=== PATIENT | female | born 1955 | race Caucasian/White ===

== ENCOUNTER → 2016-11-15 | Outpatient (CLI) | payer BC | LOC: EMI 09:36 | DX: R42 Dizziness and giddiness (principal); R51 Headache; R90.89 Other abnormal findings on diagnostic imaging of central nervous system; G31.9 Degenerative disease of nervous system, unspecified | CPT/HCPCS: 70553; A9577; J7050 ==

== ENCOUNTER → 2020-07-09 | Day surgery (SDC) | payer BC ==
[~2020-07-09] VITALS: Ht 167.6 cm; Wt 78.0 kg
[~2020-07-09] MED LIST: AMARYL2 MG PO; AMLODIPINE BESYL5 MG PO; ASPIRIN81 MG PO; BENADRYL25 MG PO; CRESTOR10 MG PO; CRESTOR20 MG PO; EFFIENT10 MG PO; ESCITALOPRAM OXA5 MG PO; ESOMEPRAZOLE MA40 MG PO; FERROUS GLUCON324 M2 PO; FEXOFENADINE H180 MG PO; FLONASE 0.05% N16 GM; FOLIC ACID 1 MG1 MG PO; IMDUR ER TAB 6060 MG PO; ISOSORBIDE MONO60 MG PO; LEVOCETIRIZINE D5 MG PO; LEVOTHYROXINE50 MCG PO; LISINOPRIL5 MG PO; MELATONIN10 M2 PO; MELATONIN3 MG PO; METFORMIN HCL1000 MG PO; METFORMIN HCL500 MG PO; METOCLOPRAMIDE H5 MG PO; METOPROLOL TART25 MG PO; MONTELUKAST SOD10 MG PO; MUCINEX600 MG PO; OMNICEF 300 MG300 MG PO; PROTONIX 40 MG40 M1 PO; STOOL SOFTENER1 EACH PO; TRAZODONE HCL50 MG PO; TRESIBA FL100 UNIT/1 INJ; VITAMIN D; ZINC50 M2 PO
== END | disposition home or self-care (01) ==
LOC: OR 06:32
PROVIDERS: Surgery
PROC: 0DB78ZX Excision of Stomach, Pylorus, Via Natural or Artificial Opening Endoscopic, Diagnostic (ICD-10-PCS; principal; 2020-07-09 08:15)
DX: K29.70 Gastritis, unspecified, without bleeding (principal); K31.89 Other diseases of stomach and duodenum; J45.909 Unspecified asthma, uncomplicated; I25.10 Atherosclerotic heart disease of native coronary artery without angina pectoris; M54.12 Radiculopathy, cervical region; E11.9 Type 2 diabetes mellitus without complications; K21.9 Gastro-esophageal reflux disease without esophagitis; E78.5 Hyperlipidemia, unspecified; I10 Essential (primary) hypertension; E03.9 Hypothyroidism, unspecified; G47.33 Obstructive sleep apnea (adult) (pediatric); M19.90 Unspecified osteoarthritis, unspecified site; F32.9 Major depressive disorder, single episode, unspecified; F41.9 Anxiety disorder, unspecified; Z88.5 Allergy status to narcotic agent; Z88.2 Allergy status to sulfonamides; Z79.899 Other long term (current) drug therapy; Z87.891 Personal history of nicotine dependence; Z86.16 Personal history of COVID-19
CPT/HCPCS: 82962; J2704; J7030

== ENCOUNTER 2020-08-19 10:53 | Emergency (ER) | payer BC ==
[~2020-08-19 10:53] MED LIST changes: -ISOSORBIDE MONO60 MG PO
[2020-08-19 11:46] LABS: HEMOGLOBIN 11.1 gm/dl (12.3-15.3); RED BLOOD COUNT 4.47 M/UL (4.00-5.10); WHITE BLOOD COUNT 7.8 K/UL (4.5-11.0)
[2020-08-19 12:22] LABS: BUN/CREATININE RATIO 17 (0-10)
== END 2020-08-19 13:44 | disposition home or self-care (01) ==
LOC: ER1 10:53
PROVIDERS: Internal Medicine
DX: R07.2 Precordial pain (principal); I25.10 Atherosclerotic heart disease of native coronary artery without angina pectoris; I51.9 Heart disease, unspecified; E11.9 Type 2 diabetes mellitus without complications; Z95.5 Presence of coronary angioplasty implant and graft; Z88.2 Allergy status to sulfonamides; Z88.8 Allergy status to other drugs, medicaments and biological substances
CPT/HCPCS: 36415; 71046; 80053; 82550; 82553; 84484; 85025; 93005; 99285

== ENCOUNTER → 2020-09-13 | Outpatient (CLI) | payer BC ==
[~2020-09-13] MED LIST changes: +ISOSORBIDE MONO60 MG PO
== END ==
LOC: HEART 5 09:23
DX: R07.9 Chest pain, unspecified (principal); R06.02 Shortness of breath; I08.1 Rheumatic disorders of both mitral and tricuspid valves; R93.1 Abnormal findings on diagnostic imaging of heart and coronary circulation
CPT/HCPCS: 93306

== ENCOUNTER 2020-09-18 11:09 | Emergency (ER) | payer BC ==
[~2020-09-18 11:09] MED LIST changes: -ISOSORBIDE MONO60 MG PO
[2020-09-18 12:04] LABS: HEMOGLOBIN 11.5 gm/dl (12.3-15.3); RED BLOOD COUNT 4.5 M/UL (4.00-5.10); WHITE BLOOD COUNT 8.3 K/UL (4.5-11.0)
[2020-09-18 12:43] LABS: BUN/CREATININE RATIO 16 (0-10)
[2020-09-18] MEDS ORDERED: ISOSORBIDE MONO60 MG PO (15:46)
== END 2020-09-18 16:05 | disposition home or self-care (01) ==
LOC: ER1 11:09
PROVIDERS: Student in an Organized Health Care Education/Training Program
DX: R07.89 Other chest pain (principal); I10 Essential (primary) hypertension; E11.9 Type 2 diabetes mellitus without complications; E03.9 Hypothyroidism, unspecified; Z20.822 Contact with and (suspected) exposure to COVID-19; Z88.2 Allergy status to sulfonamides; Z88.8 Allergy status to other drugs, medicaments and biological substances; Z90.49 Acquired absence of other specified parts of digestive tract
CPT/HCPCS: 0240U; 36600; 71045; 80053; 82550; 82553; 82803; 83874; 83880; 84484; 85025; 85379; 93005; 99285

== ENCOUNTER → 2020-10-22 | Outpatient (CLI) | payer BC ==
[~2020-10-22] MED LIST changes: +ISOSORBIDE MONO60 MG PO
== END ==
LOC: KOH-I 13:25
DX: E04.9 Nontoxic goiter, unspecified (principal); E04.1 Nontoxic single thyroid nodule; E07.9 Disorder of thyroid, unspecified
CPT/HCPCS: 76536

== ENCOUNTER → 2020-12-06 | Outpatient (CLI) | payer BC | LOC: KOH-I 15:23 | DX: R07.9 Chest pain, unspecified (principal); R05 Cough; R91.8 Other nonspecific abnormal finding of lung field | CPT/HCPCS: 71046 ==

== ENCOUNTER 2020-12-13 10:21 | Emergency (ER) | payer BC ==
[2020-12-13 11:46] LABS: RED BLOOD COUNT 4.74 M/UL (4.00-5.10); WHITE BLOOD COUNT 9.1 K/UL (4.5-11.0)
[2020-12-13 12:35] LABS: BUN/CREATININE RATIO 15 (0-10)
== END 2020-12-13 14:35 | disposition home or self-care (01) ==
LOC: ER1 10:21
PROVIDERS: Family Medicine
DX: R10.9 Unspecified abdominal pain (principal); E11.9 Type 2 diabetes mellitus without complications; Z88.2 Allergy status to sulfonamides; Z88.5 Allergy status to narcotic agent
CPT/HCPCS: 71045; 80053; 81001; 83690; 84439; 84443; 85025; 87040; 99284; Q9967

== ENCOUNTER → 2021-01-10 | Outpatient (CLI) | payer BC | LOC: KOH-I 11:39 | DX: M54.2 Cervicalgia (principal); M54.9 Dorsalgia, unspecified; M54.5 Low back pain; M47.812 Spondylosis without myelopathy or radiculopathy, cervical region; M47.816 Spondylosis without myelopathy or radiculopathy, lumbar region | CPT/HCPCS: 72040; 72070; 72100 ==

== ENCOUNTER → 2021-02-18 | Outpatient (CLI) | payer BC | LOC: CT 09:05 | DX: R10.32 Left lower quadrant pain (principal); D64.9 Anemia, unspecified; R10.13 Epigastric pain; C21.1 Malignant neoplasm of anal canal; I10 Essential (primary) hypertension; E11.9 Type 2 diabetes mellitus without complications | CPT/HCPCS: 36415; 82565; 84520; Q9967 ==

== ENCOUNTER → 2021-03-03 | Outpatient (CLI) | payer BC | LOC: KOH-I 11:30 | DX: R10.9 Unspecified abdominal pain (principal); R14.3 Flatulence | CPT/HCPCS: 74018 ==

== ENCOUNTER → 2021-07-19 | Outpatient (CLI) | payer BC | LOC: KOH-I 13:02 | DX: R05.9 Cough, unspecified (principal) | CPT/HCPCS: 71046 ==

== ENCOUNTER → 2021-09-13 | Outpatient (CLI) | payer BC | LOC: HEART 5 14:01 | DX: R05.3 Chronic cough (principal); R06.02 Shortness of breath | CPT/HCPCS: 94010; 94729 ==

== ENCOUNTER → 2021-09-21 | Outpatient (CLI) | payer BC | LOC: OPSV 08:52 | DX: D64.9 Anemia, unspecified (principal); R06.02 Shortness of breath | CPT/HCPCS: 36415; 36430; J7050 ==

== ENCOUNTER → 2021-10-31 | Outpatient (CLI) | payer BC | LOC: RT 13:08 | DX: Z01.810 Encounter for preprocedural cardiovascular examination (principal) | CPT/HCPCS: 93005 ==

== ENCOUNTER → 2021-12-13 | Outpatient (CLI) | payer BC | LOC: MAMO 11:00 | DX: Z12.31 Encounter for screening mammogram for malignant neoplasm of breast (principal) | CPT/HCPCS: 77063; 77067 ==

== ENCOUNTER → 2022-02-07 | Outpatient (CLI) | payer BC | LOC: RAD 08:56 | DX: R07.9 Chest pain, unspecified (principal); R06.02 Shortness of breath | CPT/HCPCS: 71046 ==

== ENCOUNTER 2022-02-13 10:36 | Inpatient (IN) | payer BC ==
[~2022-02-13] VITALS: Ht 170.2 cm; Wt 73.9 kg
[~2022-02-13 10:36] MED LIST changes: +ASPIRIN EC81 MG PO; -ASPIRIN81 MG PO
[2022-02-13 11:29] LABS: HEMOGLOBIN 11.9 gm/dl (12.3-15.3); RED BLOOD COUNT 4.57 M/UL (4.00-5.10); WHITE BLOOD COUNT 7.6 K/UL (4.5-11.0)
[2022-02-13 12:27] LABS: BUN/CREATININE RATIO 19 (0-10)
[2022-02-13] MEDS ORDERED: FLONASE ALLER15.8 ML (14:02)
[2022-02-13] MEDS ORDERED: BENADRYL ALLERG25 MG PO (14:02)
[2022-02-13] MEDS ORDERED: FERROUS GLUCON324 M1 PO (14:03)
[2022-02-13] MEDS ORDERED: MONTELUKAST SOD10 MG PO (14:03)
[2022-02-13] MEDS ORDERED: VITAMIN C500 M4 PO (14:03)
[2022-02-13] MEDS ORDERED: RANEXA1000 MG PO (14:03)
[2022-02-13] MEDS ORDERED: CYMBALTA60 MG PO (14:04)
[2022-02-13] MEDS ORDERED: METFORMIN HCL1000 MG PO (14:04)
[2022-02-13] MEDS ORDERED: HYDROCHLOROTH12.5 MG PO (14:04)
[2022-02-13] MEDS ORDERED: FOLIC ACID1 MG PO (14:05)
[2022-02-13] MEDS ORDERED: GINGER250 MG PO (14:05)
[2022-02-13] MEDS ORDERED: VITAMIN B-121000 MCG PO (14:05)
[2022-02-13] MEDS ORDERED: VITAMIN D325 MC6 PO (14:06)
[2022-02-13] MEDS ORDERED: METOPROLOL TART25 MG PO (14:06)
[2022-02-13] MEDS ORDERED: VITAMIN E134 M1 PO (14:06)
[2022-02-13] MEDS ORDERED: LEVOTHYROXINE50 MCG PO (14:07)
[2022-02-13] MEDS ORDERED: ROBAXIN 750 MG750 MG PO (14:07)
[2022-02-13] MEDS ORDERED: MACROBID 100 M100 MG PO (14:08)
[2022-02-13] MEDS ORDERED: ZOFRAN ODT 4 MG4 MG PO (14:08)
[2022-02-13] MEDS ORDERED: PROAIR HFA8.5 GM INH (14:08)
[2022-02-13] MEDS ORDERED: MECLIZINE HCL25 M1 PO (14:09)
[2022-02-13] MEDS ORDERED: TRAZODONE HCL50 MG PO (14:09)
[2022-02-13] MEDS ORDERED: TRESIBA FLEXTOUCH SQ (14:10)
[2022-02-13] MEDS ORDERED: PROTONIX 40 MG40 M1 PO (14:11)
--- NOTE | 2022-02-13 16:38 | NUR ---
1611: PATIENT ARRIVES TO FLOOR VIA W/C WITH ACTIVE CHEST PAIN RATING PAIN "5", MIDSTERNAL PAIN RADIATING TO LEFT ARM AND BETWEEN SHOULDER BLADES. ED NURSE STATES THAT "ALL PHYSICIANS ARE AWARE OF CONTINUED CHEST PAIN". VSS AT BP 122/59; P 69; RESP 20 AND SPO2 100% ON ROOM AIR. DR CERNA NOW ON FLOOR TO SEE PATIENT. AWAITING NEXT SET OF CARDIAC MARKERS TO BE DRAWN. ORDERS NOTED FOR NPO AFTER MN FOR STRESS TEST IN AM OF 02/14/22, PER CARDIOLOGY ORDERS.
[2022-02-14 06:29] LABS: HEMOGLOBIN 11.8 gm/dl (12.3-15.3); RED BLOOD COUNT 4.52 M/UL (4.00-5.10); WHITE BLOOD COUNT 7.2 K/UL (4.5-11.0)
[2022-02-14 06:45] LABS: BUN/CREATININE RATIO 19 (0-10)
[2022-02-15 07:59] LABS: HEMOGLOBIN 11.8 gm/dl (12.3-15.3); RED BLOOD COUNT 4.6 M/UL (4.00-5.10); WHITE BLOOD COUNT 7.6 K/UL (4.5-11.0)
[2022-02-15 08:32] LABS: BUN/CREATININE RATIO 18 (0-10)
[2022-02-15] MEDS ORDERED: ISOSORBIDE MONO30 MG PO (11:09)
[2022-02-15] MEDS ORDERED: LOPRESSOR 25 MG25 MG PO (11:09)
[2022-02-15] MEDS ORDERED: NITROGLYCERIN0.4 MG SL (11:09)
[2022-02-15] MEDS ORDERED: TRAMADOL HCL50 MG PO (11:12)
[2022-02-17] MEDS ORDERED: CLOPIDOGREL75 MG PO (10:43)
== END 2022-02-18 09:55 | disposition home or self-care (01) | DRG 247 ==
LOC: ER1 10:36 → MED SURG 4 13:31 → CDU 13:31 → MED SURG 4 16:05 → PROG CARE 02-15 22:48 → MED SURG 4 02-15 22:48 → PROG CARE 02-16 15:05
PROVIDERS: Emergency Medicine; Internal Medicine; Physician Assistant Medical; ADMIT Internal Medicine
PROC: B24BZZZ Ultrasonography of Heart with Aorta (ICD-10-PCS; 2022-02-14)
PROC: 027034Z Dilation of Coronary Artery, One Artery with Drug-eluting Intraluminal Device, Percutaneous Approach (ICD-10-PCS; principal; 2022-02-16)
PROC: 4A023N7 Measurement of Cardiac Sampling and Pressure, Left Heart, Percutaneous Approach (ICD-10-PCS; 2022-02-16)
PROC: B2111ZZ Fluoroscopy of Multiple Coronary Arteries using Low Osmolar Contrast (ICD-10-PCS; 2022-02-16)
DX: I25.10 Atherosclerotic heart disease of native coronary artery without angina pectoris (principal); E11.9 Type 2 diabetes mellitus without complications; E78.5 Hyperlipidemia, unspecified; I10 Essential (primary) hypertension; Z95.5 Presence of coronary angioplasty implant and graft; Z85.038 Personal history of other malignant neoplasm of large intestine; Z88.5 Allergy status to narcotic agent; Z88.2 Allergy status to sulfonamides; Z90.49 Acquired absence of other specified parts of digestive tract; Z98.890 Other specified postprocedural states; Z90.89 Acquired absence of other organs; Z80.8 Family history of malignant neoplasm of other organs or systems; Z83.3 Family history of diabetes mellitus; Z82.49 Family history of ischemic heart disease and other diseases of the circulatory system; Z79.899 Other long term (current) drug therapy
CPT/HCPCS: ECHO; 36415; 71045; 78452; 80048; 80053; 82550; 82553; 82962; 83735; 84484; 85025; 85027; 85347; 85610; 85730; 93005; 93017; 93306; 94760; 99152; 99153; 99285; A9502; C1725; C1769; C1874; C1887; C1894; C9600; G0378; J1644; J1650; J2250; J2785; J3010; J7040; Q9967

== ENCOUNTER 2022-02-19 21:20 | Emergency (ER) | payer OTHER ==
[~2022-02-19 21:20] MED LIST changes: +BENADRYL ALLERG25 MG PO; +CLOPIDOGREL75 MG PO; +CYMBALTA60 MG PO; +FERROUS GLUCON324 M1 PO; +FLONASE ALLER15.8 ML; +FOLIC ACID1 MG PO; +GINGER250 MG PO; +HYDROCHLOROTH12.5 MG PO; +ISOSORBIDE MONO30 MG PO; +LOPRESSOR 25 MG25 MG PO; +MACROBID 100 M100 MG PO; +MECLIZINE HCL25 M1 PO; +NITROGLYCERIN0.4 MG SL; +PROAIR HFA8.5 GM INH; +RANEXA1000 MG PO; +ROBAXIN 750 MG750 MG PO; +TRAMADOL HCL50 MG PO; +TRESIBA FLEXTOUCH SQ; +VITAMIN B-121000 MCG PO; +VITAMIN C500 M4 PO; +VITAMIN D325 MC6 PO; +VITAMIN E134 M1 PO; +ZOFRAN ODT 4 MG4 MG PO
[2022-02-19 21:41] LABS: HEMOGLOBIN 11.5 gm/dl (12.3-15.3); RED BLOOD COUNT 4.42 M/UL (4.00-5.10); WHITE BLOOD COUNT 8.1 K/UL (4.5-11.0)
[2022-02-19 22:39] LABS: BUN/CREATININE RATIO 16 (0-10)
[2022-02-20] MEDS ORDERED: NORFLEX 100 MG100 MG PO (01:40)
== END 2022-02-20 01:45 | disposition home or self-care (01) ==
LOC: ER1 21:20
PROVIDERS: Emergency Medicine
DX: S20.219A Contusion of unspecified front wall of thorax, initial encounter (principal); R06.02 Shortness of breath; I25.10 Atherosclerotic heart disease of native coronary artery without angina pectoris; I25.2 Old myocardial infarction; E11.9 Type 2 diabetes mellitus without complications; I10 Essential (primary) hypertension; Z88.2 Allergy status to sulfonamides; Z79.4 Long term (current) use of insulin; Z88.5 Allergy status to narcotic agent; Z90.710 Acquired absence of both cervix and uterus; V43.62XA Car passenger injured in collision with other type car in traffic accident, initial encounter; Y92.410 Unspecified street and highway as the place of occurrence of the external cause
CPT/HCPCS: 71045; 80053; 82550; 82553; 84484; 85025; 90471; 93005; 99285

== ENCOUNTER 2022-02-28 15:06 | Observation (INO) | payer BC ==
[~2022-02-28] VITALS: Ht 170.2 cm; Wt 73.5 kg
[~2022-02-28 15:06] MED LIST changes: +NORFLEX 100 MG100 MG PO
[2022-02-28 17:05] LABS: HEMOGLOBIN 11.9 gm/dl (12.3-15.3); RED BLOOD COUNT 4.46 M/UL (4.00-5.10); WHITE BLOOD COUNT 9.3 K/UL (4.5-11.0)
[2022-02-28 17:37] LABS: BUN/CREATININE RATIO 21 (0-10)
[2022-03-01] MEDS ORDERED: ISOSORBIDE MONO60 MG PO (14:02)
== END 2022-03-01 15:03 | disposition home or self-care (01) ==
LOC: ER1 15:06 → CDU 23:22 → MED SURG 4 23:22
PROVIDERS: Physician Assistant; ADMIT Internal Medicine
DX: R07.89 Other chest pain (principal); I25.10 Atherosclerotic heart disease of native coronary artery without angina pectoris; E11.9 Type 2 diabetes mellitus without complications; E78.00 Pure hypercholesterolemia, unspecified; I10 Essential (primary) hypertension; K21.9 Gastro-esophageal reflux disease without esophagitis; F41.9 Anxiety disorder, unspecified; E03.9 Hypothyroidism, unspecified; Z79.02 Long term (current) use of antithrombotics/antiplatelets; Z79.84 Long term (current) use of oral hypoglycemic drugs; Z79.890 Hormone replacement therapy; Z79.899 Other long term (current) drug therapy; Z87.891 Personal history of nicotine dependence; Z88.2 Allergy status to sulfonamides; Z88.5 Allergy status to narcotic agent; Z95.5 Presence of coronary angioplasty implant and graft
CPT/HCPCS: 36415; 71045; 80053; 82550; 82553; 82962; 84484; 85025; 85610; 85730; 93005; 96374; 96376; 99285; G0378; J1644; Q9967

== ENCOUNTER → 2022-03-13 | Outpatient (CLI) | payer BC | LOC: HEART 5 03-07 08:30 | DX: R94.31 Abnormal electrocardiogram [ECG] [EKG] (principal); R06.00 Dyspnea, unspecified; I20.9 Angina pectoris, unspecified; I51.7 Cardiomegaly | CPT/HCPCS: 93306 ==

== ENCOUNTER → 2022-03-14 | Outpatient (CLI) | payer BC | LOC: EXRD 07:30 | DX: R09.89 Other specified symptoms and signs involving the circulatory and respiratory systems (principal); R42 Dizziness and giddiness; E04.1 Nontoxic single thyroid nodule; R10.9 Unspecified abdominal pain; R94.2 Abnormal results of pulmonary function studies; M94.9 Disorder of cartilage, unspecified; Z87.891 Personal history of nicotine dependence; E89.0 Postprocedural hypothyroidism | CPT/HCPCS: 76536; 76706; 93880 ==